=== PATIENT | male | born 2000 | race Caucasian/White ===

== ENCOUNTER 2023-05-10 10:32 | Outpatient (CLI) | payer BC | END 2023-05-10 23:59 | disposition home or self-care (01) | LOC: RAD 10:32 | PROVIDERS: ATTEND Nurse Practitioner Pediatrics | DX: J34.2 Deviated nasal septum (principal); R43.0 Anosmia; J33.9 Nasal polyp, unspecified; R09.81 Nasal congestion | CPT/HCPCS: 70486 ==